=== PATIENT | male | born 1985 | race Caucasian/White ===

== ENCOUNTER 2018-10-21 06:53 | Day surgery (SDC) | payer OTHER ==
[2018-10-20 12:07] VITALS: BMI 27.8
[2018-10-21] MEDS ORDERED: PROPOFOL 20 ML ONE (09:51)
[2018-10-21] MEDS ORDERED: ONDANSETRON 4 MG/2 ML VIAL ONE (09:51)
[2018-10-21] MEDS ORDERED: DEXAMETHASONE SOD PHOSPHATE 4 MG/1 ML VIAL ONE (09:51)
[2018-10-21] MEDS ORDERED: ROPIVACAINE HCL 0.5% 30ML VIAL ONE (09:58)
[2018-10-21] MEDS ORDERED: MIDAZOLAM HCL 2 MG/2 ML SINGLE DOSE VIAL ONE (09:58)
[2018-10-21] MEDS ORDERED: BUPIVACAINE HCL/EPINEPHRINE/PF 30 ML VIAL IJ ONE (10:27)
[2018-10-21] MEDS ORDERED: ceFAZolin SODIUM 1 GM VIAL ONE (10:28)
[2018-10-21] MEDS ORDERED: oxyCODONE HCL 5 MG TABLET PO PRN ×2 (10:44)
[2018-10-21] MEDS ORDERED: ONDANSETRON 4 MG/2 ML VIAL IVPUSH PRN (10:44)
[2018-10-21] MEDS ORDERED: LACTATED RINGERS SOLUTION 1,000 ML IV SCH (10:45)
[2018-10-21] MEDS ORDERED: BUPIVACAINE 0.25% /EPI 1:200,000 10 ML VIAL INF ONE (11:28)
--- NOTE | 2018-10-21 11:41 | OP ---
Operative Note - Note: Operative Date: 10/21/18 Pre-Operative Diagnosis: Right Shoulder partial biceps tear Operation: rSA, open biceps tenodesis Post-Operative Diagnosis: Same as Pre-op Surgeon: Oz Estrada Edging Machine Operator: Trung Sutton Anesthesiologist/BOILER HOUSE OPERATOR: Khalif Heath Anesthesia: General Operative Report Dictated: Yes
--- NOTE | 2018-10-21 11:41 | DS ---
Physical Examination Vital Signs: Vital Signs Temperature Pulse Rate Respiratory Rate Blood Pressure O2 Sat by Pulse Oximetry (%) 96 10/21/18 07:16 Discharge Summary Reason For Visit: ROTATTOR CUFF, BICEPS TEAR RIGHT KNEE Condition: Good - Instructions Diet, Activity, Other Instructions: Post Operative Instructions: Shoulder Arthroscopy Dr Oz Estrada 1. Pain following a Shoulder Arthroscopy is variable and can be significant. Some patients will have more pain than others. You have been provided with a prescription for medication that contains a narcotic. You are not allowed to drive while on this medication. You should take Tylenol (Acetaminophen) when taking the pain medication ( it will NOT result in an overdose). Feel free to take medications such as Ibuprofen or Naprosyn in addition to the pain medicine if you do not have any problems with the NSAID class of medications. Take Aspirin 325 mg TWICE a day to decrease the risk of blood clots. 2. Apply ice to the shoulder for 15 minutes every hour. You may continue this for as many days as necessary. 3. You may find sleeping on an incline (reclining chair) to be more comfortable for the first few days. 4. You must remain in your sling at all times except when showering. The only exception to this is to allow you to stretch your elbow a few times a day to prevent your hand and forearm from swelling. 5. You are not to use your arm to reach for anything, lift anything or carry anything until instructed otherwise. 6. You may remove the bandages in 48 hours. You may shower at that point. 7. Place band-aids on the glue after your shower.Do not put any creams or lotions on the incision until after the sutures are removed. Do not pick at the glue. It is OK if fluid oozes out from the incisions for the first few days 8. Please call the office to schedule a visit to have your sutures removed. 9. If for any reason you believe you may have an infection or are concerned, please feel free to call me. I can be reached through our office number 24 hours a day. 10. Please call our office with any questions; we will review the surgical findings during your post-operative visit. Disposition: HOME - Home Medications Comprehensive Discharge Medication List: Ambulatory Orders NK [No Known Home Medication] 10/20/18
--- NOTE | 2018-10-21 11:52 | SURG ---
Surgery Hauling Contractor Note Hauling Contractor: Trung Sutton PA-C Date of Service: 10/21/18 Diagnosis: Right Shoulder partial biceps tear Procedure: Right shoulder arthroscopy, open biceps tenodesis I was present for the entirety of the operative procedure. For further detail, please refer to operative report. Visit type - Case Type Case Type: Scheduled - New patient This patient is new to me today: Yes Date on this admission: 10/21/18
[2018-10-21 13:24] VITALS: BP 121/84; PULSE 68; TEMP 98
--- NOTE | 2018-10-26 14:52 | PATH ---
Surgical Pathology Report Patient Name: MAY SABILLON [facility]. Rec. #: [id number] /Age/Gender: 1985 (Age: 33) / M Account: [id number] Location: [facility] Taken: 10/21/2018 Received: 10/22/2018 Reported: 10/26/2018 Physicians: Oz Estrada M.D. Specimen(s) Received RIGHT BICEPS TENDON Clinical History Right biceps tear Final Diagnosis PORTION OF RIGHT BICEPS TENDON, REPAIR: FIBROCOLLAGENOUS TISSUE, CONSISTENT WITH TENDON. Electronically Signed Asya Aguilar M.D. Gross Description Received in formalin labeled "portion of right biceps tendon," is a 6.0 x 0.7 x 0.3 cm pond portion of fibrous tissue, consistent with a portion of tendon. Senior Instructor sections are submitted in one cassette. /10/22/2018 saudi10/22/2018
== END 2018-10-21 13:26 | disposition home or self-care (01) ==
LOC: FASU 06:53
PROVIDERS: ATTEND Orthopaedic Surgery
PROC: 0LS10ZZ Reposition Right Shoulder Tendon, Open Approach (ICD-10-PCS; principal; 2018-10-21 09:00)
PROC: 0RBJ4ZZ Excision of Right Shoulder Joint, Percutaneous Endoscopic Approach (ICD-10-PCS; 2018-10-21 09:00)
DX: M75.21 Bicipital tendinitis, right shoulder (principal); M66.821 Spontaneous rupture of other tendons, right upper arm; M65.811 Other synovitis and tenosynovitis, right shoulder; M75.81 Other shoulder lesions, right shoulder; M25.311 Other instability, right shoulder
CPT/HCPCS: 88304-TC; 94760